=== PATIENT | male | born 1970 | race Caucasian/White ===

== ENCOUNTER 2017-11-04 13:47 | Emergency (ER) | payer OTHER, SELFPAY ==
[2017-11-04 14:07] VITALS: BP 131/104; PULSE 124; RESP 16; TEMP 37.1; O2SAT 94
--- NOTE | 2017-11-04 15:14 | DI.COMBO_ITS ---
SYMPTOM/DIAGNOSIS: SWELLING, REDNESS RT OLECRANON, GAS ON XRAY RIGHT ELBOW: Three views. No priors. There is significant soft tissue swelling in the region of the olecranon. There is soft tissue stranding also noted. There is a well corticated, 3 mm. density proximal to the olecranon in the posterior soft tissues. This is indeterminate. There is an ovoid, well circumscribed area of decreased attenuation anterior and lateral to the elbow. It measures approximately 5 cm. in maximum length. No associated calcifications are seen. There is a moderate sized spur arising from the olecranon. No acute fracture or dislocation is seen. No significant joint effusion is present. IMPRESSION: 1. Significant soft tissue swelling along the region of the olecranon bursa. This may represent a bursitis. CT or MRI should be considered for further evaluation. 2. Well circumscribed, low attenuation lesion in the lateral soft tissues. CT or MRI is suggested for further evaluation. 3. No acute fracture or dislocation. 4. Tiny soft tissue calcification proximal to the olecranon on the dorsum of the distal humerus. RIGHT ELBOW CT: Post contrast exam. Routine examination was performed. There is a 5 cm. intramuscular fat density lesion lateral to the elbow most suggestive of a lipoma. There is a thin septation in the lesion distally. The mass itself is of homogeneously fat attenuation. No abnormal enhancement is seen. There is significant soft tissue swelling and edema in the soft tissues adjacent to the olecranon. There also appears to be a 3.8 cm, rim enhancing fluid collection adjacent to the olecranon. The finding is suspicious for a bursitis. There does appear to be some cortical irregularity of the adjacent osteophyte on the olecranon. There also appears to be some loss of the fat plane between the adjacent musculature. An adjacent myositis or osteomyelitis cannot be excluded. No acute fracture or dislocation is identified. IMPRESSION: 1. Soft tissue stranding and a fluid collection adjacent to the olecranon suspicious for a bursitis. This may represent an infectious, traumatic or inflammatory bursitis. Question of involvement of the adjacent bone and muscle and a myositis osteomyelitis cannot be excluded. MRI may be considered for further evaluation. 2. 5 cm. fat density lesion in the soft tissues lateral to the elbow most suggestive of a lipoma. This may be further evaluated with an MRI.
--- NOTE | 2017-11-04 15:31 | W.ED.GENAD ---
Discharge Plan Disposition Patient Disposition: HOME Condition: Good Discharge Details Chief Complaint: Cellulitis Clinical Impression: Bursitis, olecranon Primary Care Provider: Christofer Abernathy ED Provider: Pawel Ibrahim Home Meds and New Rx's Prescriptions: New cephalexin [Keflex] 500 mg capsule 500 mg PO QID Qty: 30 RF: 0 Discharge Instructions Instructions: Elbow Bursitis (ED) Additional Instructions: Please take the antibiotic as directed. Please take 800 mg of your home ibuprofen 3 times per day. Please follow-up with the orthopedic surgeon Dr. Romero Saturday. Please call their office tomorrow morning at [phone] Romero wanted you to be seen on Saturday promptly. If you notice any worsening of your symptoms, or any new symptoms such as vomiting, diarrhea, fever, chills, shortness of breath, chest pain, numbness, weakness, or fainting , please return immediately to the emergency department for reevaluation. Please follow up with your primary care provider as soon as possible for reassessment and reevaluation. As always, it was a pleasure participating in your medical care today. Referrals: Herman Romero MD [ [facility] STAFF PHYSICIAN] - Discharge Data Discharge Date/Time-TO BE ENTERED AT DEPARTURE: 11/04/17 18:20 Medical Decision Making This is a pleasant 47-year-old male who presents with swelling over his right elbow for the last 3-1/2 days. Pain only began 24-48 hours ago. Minimal redness, no spreading erythema, no significant warmth over the elbow. He does have history of gout, which is certainly on the differential. There is pain with extension, minimal pain with flexion. He does the patient has been working on placing siding on his house. Main differential would normally include bursitis, however with his pain that is now worsening, and elevated heart rate differential is broadened to include infected bursitis, gout, mild cellulitis. Patient assures me that his heart rate is always high whenever he comes in to see the doctor, however I feel that it certainly does warrant caution and concern with his current elevated heart rate. We will evaluate for infectious etiology. Perform an x-ray to evaluate for any subcu gas, control his pain. X-ray results per virtual radiology have returned and demonstrate there is a significant soft tissue swelling in the region of the BURSA. THIS CAN BE SEEN WITH INFECTION, TRAUMA, OR BURSITIS. MORE ANTERIORLY A ROUNDED COLLECTION OF GAS IS IDENTIFIED IN THE SOFT TISSUE ADJACENT TO THE DISTAL HUMERUS AND PROXIMAL RADIUS. THIS IS WORRISOME FOR SOFT TISSUE INFECTION/ABSCESS. JOINT INFECTION IS ALSO POSSIBLE. CT SCAN SUGGESTED FOR FURTHER EVALUATION. CT SCAN WAS SUBSEQUENTLY ORDERED, FINDINGS WERE FOLLOWS THERE IS A STRANDING OF THE SOFT TISSUES SUPERFICIAL TO THE OLECRANON WITH A FLUID COLLECTION IDENTIFIED. THIS DEMONSTRATES SOME RIM ENHANCEMENT AND PUNCTATE RADIODENSITIES WHICH COULD REPRESENT COMPLEXITY. THE FINDINGS CAN BE SEEN WITH INFECTIOUS/SEPTIC BURSITIS, WITH ABSCESS FORMATION, TRAUMATIC BURSITIS, OR INFLAMMATORY BURSITIS. THERE IS LOSS OF FLAP PLANES BETWEEN THIS PROCESS IS ASSOCIATED FLUID STRANDING AND THE ADJACENT MUSCULATURE AND BONE. MYOSITIS AND OSTEOMYELITIS IS THEREFORE NOT EXCLUDED. MRI WITH CONTRAST WOULD BE BENEFICIAL FOR FURTHER EVALUATION. #2 NO SOFT TISSUE GAS IS IDENTIFIED. THIS 5 CM ROUNDED LUCENCY IN THE SOFT TISSUE ADJACENT TO THE DISTAL HUMERUS AND PROXIMAL RADIUS CORRESPOND TO AN INTRAMUSCULAR FATTY LESION. THIS MAY REPRESENT A LIPOMA IT DEMONSTRATES A SEPTATION. OTHER TYPES OF LESIONS ARE THEREFORE NOT EXCLUDED. THIS CAN ALSO BE FURTHER EVALUATED WITH MRI. Patient's laboratory workup has returned, he demonstrates no significant white count, his heart rate is improving with fluid resuscitation's. Out of concern for infectious etiology did start vancomycin and ceftriaxone. Patient's ESR is normal, however CRP is mildly elevated. Out of concern for potential infectious etiology, we did contact the orthopedic surgeon Dr. Romero. Discussed the case with him, and he came in for personal evaluation. Here in the emergency department Dr. Romero did take a fluid sample of the elbow. Dr. Romero specifically recommended discharge home, with Keflex for antibiotics for potential albeit unlikely infectious etiology. He feels that the patient's symptoms are secondary to inflammatory bursitis of the elbow. He does not think that the patient's current clinical picture reflects septic arthritis. He recommends close follow-up on Saturday morning. He states that he will send off cultures and and evaluate the fluid results on the patient's visit to the office. Patient's heart rate is improved. I have reviewed the plan with Dr. Romero and the patient together. Patient will be discharged. I have extensively reviewed the treatment plan and discharge instructions with the patient. I have addressed all patient concerns at this time. The patient was made aware of what symptoms to monitor for that would warrant a return to the emergency department. Discussed the plan with the patient, they demonstrate verbal understanding and agreement with our assessment and plan at this time. HPI General Date/Time Provider Initiated Documentation: 11/04/17 14:18. HPI Narrative: This is a 47-year-old male who presents today for right elbow pain. The patient states that for the last week he has been doing siding on his house, and on Saturday which was 4 days prior to arrival he noticed some swelling at his right elbow. No pain or tenderness at that time. Starting last night and today he has had notable increase in pain which extends slightly distally by about 2-3 inches. No other significant redness or spreading of the redness. The swelling has remained consistent. The pain is worse with movement, particularly extension of the elbow. As well as palpation. He has had some ice and Tylenol applied to the area and this is not significantly improved his symptoms. He has had no systemic symptoms of fever, chills, shortness of breath. Patient does admit to a history of gout in the distant past, he does admit to eating a diet heavy in meat recently, but denies any changes compared to normal. He denies any trauma to the area, or any other exacerbating components. Patient denies any other relieving components either. The patient denies any other modifying factors at this time. He denies any pertinent family history, any recent surgical history, or any IV or illicit drug use. Related Data Home Medications Medication Instructions Recorded Confirmed cephalexin [Keflex] 500 mg PO QID #30 cap 11/04/17 Previous Rx's Medication Instructions Recorded cephalexin [Keflex] 500 mg PO QID #30 cap 11/04/17 Allergies Allergy/AdvReac Type Severity Reaction Status Date / Time pollen extracts Allergy Unverified 11/04/17 14:13 General Stated Complaint: Cellulitis FERNADNO: 3 Review of Systems Review of Systems 10 point review of systems was performed, pertinent positives and negatives are noted in the history of present illness. PFSH Medical History Diverticulitis large intestine w/o perforation or abscess w/o bleeding Essential hypertension Non morbid obesity due to excess calories Social History Smoking/Tobacco Use Status: Former Tobacco Use Surgical History Appendectomy [place] [facility] [place] Hernia repair Exam Narrative Exam Narrative: 1.Const: Well-nourished, Well-developed, appearing stated age 2.Eyes: PERRL, no conjunctival injection, and symmetrical lids. 3.ENT: Atraumatic external nose and ears. Moist MM. Neck: Symmetric, trachea midline, No thyromegaly. 4.CVS: +S1/S2, No murmurs or gallops. Peripheral pulses 2+ and equal in all extremities. Brisk capillary refill in all extremities. 5.RESP: Unlabored respiratory effort. Clear to auscultation bilaterally. No wheezes rales or rhonchi 6.GI: Soft, Nontender/Nondistended, No hepatosplenomegaly. No guarding or rebound. 7.MSK: Normocephalic/Atraumatic, Extremities w/o deformity No cyanosis or clubbing, Patient's extremities are all normal except for the right upper extremity. The right upper extremity demonstrates notable swelling at the olecranon itself. Minimal erythema. No significant warmth. Pain with active and passive movement, specifically extension at the elbow. No crepitus is noted. All compartments are soft. No spreading erythema. No tenderness on the distal forearm, absolute minimal tenderness roughly 1-2 inches distal on the forearm from the olecranon process. Sensation is intact including soft, pinprick, and 2 point discrimination distal to the swelling. No significant axillary lymphadenopathy. Capillary refill is brisk, no IV drug luz, radial pulses +2 bilaterally. 8.Skin: Warm, Dry. .Please see musculoskeletal 9.Neuro: talent coordinator II-XII grossly intact. Sensation grossly intact, no focal neurologic deficits. 10.Psych: (AAO) x3. Appropriate mood and affect Course Vital Signs Temperature 37.1 C 11/04/17 14:07 Pulse 124 H 11/04/17 14:07 Respiratory Rate 16 11/04/17 14:07 Blood Pressure 131/104 H 11/04/17 14:07 Pulse Oximetry 94 L 11/04/17 14:07 Temperature 37.1 C 11/04/17 14:07 Temperature Source Skin 11/04/17 14:07 Pulse 124 H 11/04/17 14:07 Respiratory Rate 16 11/04/17 14:07 Respiratory Effort 11/04/17 14:11 Blood Pressure 131/104 H 11/04/17 14:07 Blood Pressure Position Sitting 11/04/17 14:07 Pulse Oximetry 94 L 11/04/17 14:07 Oxygen Delivery Method Room Air 11/04/17 14:07 Oxygen Flow Rate 0 11/04/17 14:07 Pain Level 5 11/04/17 14:07 Lab/Test Results Lab/Test Results: 11/04/17 15:15 Blood Blood Culture - Pending 11/04/17 15:15 Blood Blood Culture - Pending
--- NOTE | 2017-11-04 15:36 | ED.GENADUL_ITS ---
Discharge Plan Disposition Patient Disposition: HOME Condition: Good Discharge Details Chief Complaint: Cellulitis Clinical Impression: Bursitis, olecranon Primary Care Provider: Christofer Abernathy ED Provider: Pawel Ibrahim Home Meds and New Rx's Prescriptions: New cephalexin [Keflex] 500 mg capsule 500 mg PO QID Qty: 30 RF: 0 Discharge Instructions Instructions: Elbow Bursitis (ED) Additional Instructions: Please take the antibiotic as directed. Please take 800 mg of your home ibuprofen 3 times per day. Please follow-up with the orthopedic surgeon Dr. Romero Saturday. Please call their office tomorrow morning at and tell them that Dr. Romero wanted you to be seen on Saturday promptly. If you notice any worsening of your symptoms, or any new symptoms such as vomiting, diarrhea, fever, chills, shortness of breath, chest pain, numbness, weakness, or fainting , please return immediately to the emergency department for reevaluation. Please follow up with your primary care provider as soon as possible for reassessment and reevaluation. As always, it was a pleasure participating in your medical care today. Referrals: Herman Romero MD [ [facility] STAFF PHYSICIAN] - Discharge Data Discharge Date/Time-TO BE ENTERED AT DEPARTURE: 11/04/17 18:20 Medical Decision Making This is a pleasant 47-year-old male who presents with swelling over his right elbow for the last 3-1/2 days. Pain only began 24-48 hours ago. Minimal redness, no spreading erythema, no significant warmth over the elbow. He does have history of gout, which is certainly on the differential. There is pain with extension, minimal pain with flexion. He does the patient has been working on placing siding on his house. Main differential would normally include bursitis, however with his pain that is now worsening, and elevated heart rate differential is broadened to include infected bursitis, gout, mild cellulitis. Patient assures me that his heart rate is always high whenever he comes in to see the doctor, however I feel that it certainly does warrant caution and concern with his current elevated heart rate. We will evaluate for infectious etiology. Perform an x-ray to evaluate for any subcu gas, control his pain. X-ray results per virtual radiology have returned and demonstrate there is a significant soft tissue swelling in the region of the BURSA. THIS CAN BE SEEN WITH INFECTION, TRAUMA, OR BURSITIS. MORE ANTERIORLY A ROUNDED COLLECTION OF GAS IS IDENTIFIED IN THE SOFT TISSUE ADJACENT TO THE DISTAL HUMERUS AND PROXIMAL RADIUS. THIS IS WORRISOME FOR SOFT TISSUE INFECTION/ABSCESS. JOINT INFECTION IS ALSO POSSIBLE. CT SCAN SUGGESTED FOR FURTHER EVALUATION. CT SCAN WAS SUBSEQUENTLY ORDERED, FINDINGS WERE FOLLOWS THERE IS A STRANDING OF THE SOFT TISSUES SUPERFICIAL TO THE OLECRANON WITH A FLUID COLLECTION IDENTIFIED. THIS DEMONSTRATES SOME RIM ENHANCEMENT AND PUNCTATE RADIODENSITIES WHICH COULD REPRESENT COMPLEXITY. THE FINDINGS CAN BE SEEN WITH INFECTIOUS/ SEPTIC BURSITIS, WITH ABSCESS FORMATION, TRAUMATIC BURSITIS, OR INFLAMMATORY BURSITIS. THERE IS LOSS OF FLAP PLANES BETWEEN THIS PROCESS IS ASSOCIATED FLUID STRANDING AND THE ADJACENT MUSCULATURE AND BONE. MYOSITIS AND OSTEOMYELITIS IS THEREFORE NOT EXCLUDED. MRI WITH CONTRAST WOULD BE BENEFICIAL FOR FURTHER EVALUATION. #2 NO SOFT TISSUE GAS IS IDENTIFIED. THIS 5 CM ROUNDED LUCENCY IN THE SOFT TISSUE ADJACENT TO THE DISTAL HUMERUS AND PROXIMAL RADIUS CORRESPOND TO AN INTRAMUSCULAR FATTY LESION. THIS MAY REPRESENT A LIPOMA IT DEMONSTRATES A SEPTATION. OTHER TYPES OF LESIONS ARE THEREFORE NOT EXCLUDED. THIS CAN ALSO BE FURTHER EVALUATED WITH MRI. Patient's laboratory workup has returned, he demonstrates no significant white count, his heart rate is improving with fluid resuscitation's. Out of concern for infectious etiology did start vancomycin and ceftriaxone. Patient's ESR is normal, however CRP is mildly elevated. Out of concern for potential infectious etiology, we did contact the orthopedic surgeon Dr. Romero. Discussed the case with him, and he came in for personal evaluation. Here in the emergency department Dr. Romero did take a fluid sample of the elbow. Dr. Romero specifically recommended discharge home, with Keflex for antibiotics for potential albeit unlikely infectious etiology. He feels that the patient's symptoms are secondary to inflammatory bursitis of the elbow. He does not think that the patient's current clinical picture reflects septic arthritis. He recommends close follow-up on Saturday morning. He states that he will send off cultures and and evaluate the fluid results on the patient's visit to the office. Patient's heart rate is improved. I have reviewed the plan with Dr. Romero and the patient together. Patient will be discharged. I have extensively reviewed the treatment plan and discharge instructions with the patient. I have addressed all patient concerns at this time. The patient was made aware of what symptoms to monitor for that would warrant a return to the emergency department. Discussed the plan with the patient, they demonstrate verbal understanding and agreement with our assessment and plan at this time. HPI General Date/Time Provider Initiated Documentation: 11/04/17 14:18 . HPI Narrative: This is a 47-year-old male who presents today for right elbow pain. The patient states that for the last week he has been doing siding on his house, and on Saturday which was 4 days prior to arrival he noticed some swelling at his right elbow. No pain or tenderness at that time. Starting last night and today he has had notable increase in pain which extends slightly distally by about 2-3 inches. No other significant redness or spreading of the redness. The swelling has remained consistent. The pain is worse with movement, particularly extension of the elbow. As well as palpation. He has had some ice and Tylenol applied to the area and this is not significantly improved his symptoms. He has had no systemic symptoms of fever, chills, shortness of breath. Patient does admit to a history of gout in the distant past, he does admit to eating a diet heavy in meat recently, but denies any changes compared to normal. He denies any trauma to the area, or any other exacerbating components. Patient denies any other relieving components either. The patient denies any other modifying factors at this time. He denies any pertinent family history, any recent surgical history, or any IV or illicit drug use. Related Data Home Medications Medication Instructions Recorded Confirmed cephalexin [Keflex] 500 mg PO QID #30 cap 11/04/17 Previous Rx's Medication Instructions Recorded cephalexin [Keflex] 500 mg PO QID #30 cap 11/04/17 Allergies Allergy/AdvReac Type Severity Reaction Status Date / Time pollen extracts Allergy Unverified 11/04/17 14:13 General Stated Complaint: Cellulitis FERNANDO: 3 Review of Systems Review of Systems 10 point review of systems was performed, pertinent positives and negatives are noted in the history of present illness. PFSH Medical History Diverticulitis large intestine w/o perforation or abscess w/o bleeding Essential hypertension Non morbid obesity due to excess calories Social History Smoking/Tobacco Use Status: Former Tobacco Use Surgical History App[place] [facility] [place] Hernia repair Exam Narrative Exam Narrative: 1.Const: Well-nourished, Well-developed, appearing stated age 2.Eyes: PERRL, no conjunctival injection, and symmetrical lids. 3.ENT: Atraumatic external nose and ears. Moist MM. Neck: Symmetric, trachea midline, No thyromegaly. 4.CVS: +S1/S2, No murmurs or gallops. Peripheral pulses 2+ and equal in all extremities. Brisk capillary refill in all extremities. 5.RESP: Unlabored respiratory effort. Clear to auscultation bilaterally. No wheezes rales or rhonchi 6.GI: Soft, Nontender/Nondistended, No hepatosplenomegaly. No guarding or rebound. 7.MSK: Normocephalic/Atraumatic, Extremities w/o deformity No cyanosis or clubbing, Patient's extremities are all normal except for the right upper extremity. The right upper extremity demonstrates notable swelling at the olecranon itself. Minimal erythema. No significant warmth. Pain with active and passive movement, specifically extension at the elbow. No crepitus is noted. All compartments are soft. No spreading erythema. No tenderness on the distal forearm, absolute minimal tenderness roughly 1-2 inches distal on the forearm from the olecranon process. Sensation is intact including soft, pinprick, and 2 point discrimination distal to the swelling. No significant axillary lymphadenopathy. Capillary refill is brisk, no IV drug luz, radial pulses +2 bilaterally. 8.Skin: Warm, Dry. 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 Sensation grossly intact, no focal neurologic deficits. 10.Psych: (AAO) x3. Appropriate mood and affect Course Vital Signs Temperature 37.1 C 11/04/17 14:07 Pulse 124 H 11/04/17 14:07 Respiratory Rate 16 11/04/17 14:07 Blood Pressure 131/104 H 11/04/17 14:07 Pulse Oximetry 94 L 11/04/17 14:07 Temperature 37.1 C 11/04/17 14:07 Temperature Source Skin 11/04/17 14:07 Pulse 124 H 11/04/17 14:07 Respiratory Rate 16 11/04/17 14:07 Respiratory Effort 11/04/17 14:11 Blood Pressure 131/104 H 11/04/17 14:07 Blood Pressure Position Sitting 11/04/17 14:07 Pulse Oximetry 94 L 11/04/17 14:07 Oxygen Delivery Method Room Air 11/04/17 14:07 Oxygen Flow Rate 0 11/04/17 14:07 Pain Level 5 11/04/17 14:07 Lab/Test Results Lab/Test Results: 11/04/17 15:15 Blood Blood Culture - Pending 11/04/17 15:15 Blood Blood Culture - Pending
[2017-11-04 15:41] LABS: Lactate-non-spesis 1.6 mmol/L (0.6-1.4)
[2017-11-04 15:42] LABS: Abs Immature Grans 0.02 k/cumm (0.0-0.09); Absolute Eosinophil Count 0.31 k/cumm (0.0-0.7); Absolute Monocyte Count 0.63 k/cumm (0.11-0.7); Basophils % 0.3; Eosinophils % 2.6; HCT 51.2 % (40.0-50.0); Immature Grans % 0.2; Lymphocytes % 25.1; Mean Corp. HGB Concentration 35.2 g/dL (32.0-36.0); Mean Corpuscular Hemoglobin 31.1 pg (27.0-33.0); Mean Corpuscular Volume 88.4 fL (80-95); Mean Platelet Volume 9.4 fL (8.0-11.0); Monocytes % 5.3; Neutrophils % 66.5; Platelet Count 249 x1000/uL (130-400); RBC 5.79 m/cumm (4.50-6.00); RBC Distribution Width 13.1 % (11.8-14.1); White Blood Cell Count 11.95 k/cumm (4.4-10.8)
[2017-11-04 15:44] LABS: Absolute Basophil Count 0.04 k/cumm (0.0-0.2); Absolute Neutrophil Count 7.95 k/cumm (1.2-6.7)
[2017-11-04] MEDS: Normal Saline 1,000 ML 1000 ML IV (16:10)
[2017-11-04] MEDS: Ketorolac 30 MG/ML VIAL IM (16:10)
[2017-11-04 16:13] LABS: ALT 73 U/L (12-78); AST 24 U/L (15-37); Albumin 3.4 g/dL (3.4-5.0); Alkaline Phosphatase 82 U/L (46-116); Anion Gap 8.9 mmol/L (3-11); BUN 19 mg/dL (7-18); Bilirubin, Total 0.2 mg/dL (0.2-1.0); C-Reactive Protein 0.94 mg/dL (0.0-0.3); CO2 28.1 mmol/L (21.0-32.0); CREATININE 1.04 mg/dL (0.70-1.30); Calcium 8.8 mg/dL (8.5-10.1); Chloride 104 mmol/L (98-107); Glucose 168 mg/dL (70-100); Potassium 3.9 mmol/L (3.5-5.1); Sodium 141 mmol/L (136-145); Total Protein 7.2 g/dL (6.4-8.2)
[2017-11-04 16:14] LABS: ESR 8 MM/HR (0-15)
[2017-11-04 16:16] LABS: Uric Acid 6.8 mg/dL (3.5-7.2)
--- NOTE | 2017-11-04 17:04 | DI.VRAD_ITS ---
EXAM: XR Right Elbow Complete, 3 or More Views CLINICAL HISTORY: 47 years old, male; Pain; Elbow; Right; Patient HX: Swelling/redness at right olecrenon TECHNIQUE: Frontal, lateral and oblique views of the right elbow. COMPARISON: No relevant prior studies available. FINDINGS: Bones/joints: Spurlike protrusions are seen arising from the radial aspect of the distal humerus (image 1001) and from the olecranon posteriorly. No dislocation. Soft tissues: There is significant soft tissue swelling in the region of the olecranon bursa. More anteriorly, a 5 cm rounded collection of gas is identified in the soft tissues adjacent to the distal humerus and proximal radius. There is a rounded density in the posterior soft tissues, image 1003, 3 mm. This could represent a soft tissue calcification but should be correlated with any concern for foreign body. IMPRESSION: 1. There is significant soft tissue swelling in the region of the olecranon bursa. This can be seen with infection, trauma, or bursitis. More anteriorly, a rounded collection of gas is identified in the soft tissues adjacent to the distal humerus and proximal radius. This is worrisome for a soft tissue infection/abscess. Joint infection is also possible. CT scan suggested for further evaluation. 2. There is significant soft tissue swelling in the region of the olecranon bursa. This can be seen with infection, trauma, or bursitis. 3. Spurlike protrusions are seen arising from the radial aspect of the distal humerus and from the olecranon posteriorly. These could represent the sequela of older trauma or degenerative change but should be correlated with any concern for avulsion injuries/fractures. 4. Possible soft tissue calcification. Finding should be correlated with any concern for foreign body. Other findings as above. THIS REPORT CONTAINS FINDINGS THAT MAY BE CRITICAL TO PATIENT CARE. The findings were verbally communicated via telephone conference with JOAN VASQUEZ at 5:02 PM EDT on 11/04/2017. The findings were acknowledged and understood. Dictated and Authenticated by: Christy Figueroa MD. Ordering:SEBASTIEN FRANCO MD
--- NOTE | 2017-11-04 18:36 | DI.VRAD_ITS ---
EXAM: CT Right Upper Extremity With Intravenous Contrast, Elbow CLINICAL HISTORY: 47 years old, male; Signs and symptoms; Swelling; Elbow; Right; Patient HX: Right elbow swelling, presence of gas on xray TECHNIQUE: Axial computed tomography images of the right elbow with intravenous contrast. Coronal and sagittal reformatted images were created and reviewed. COMPARISON: CR XR elbow RT complete 11/04/2017 3:41 PM FINDINGS: Bones/joints: There are skeletal degenerative changes with bony spurs noted. No acute fracture. No dislocation. Soft tissues: There is stranding of the soft tissues superficial to the olecranon with a fluid collection identified measuring approximately 3.8 cm in maximum dimensions. This demonstrates some rim enhancement and punctate radiodensities which could represent complexity (foreign bodies not excluded).. The findings can be seen with infectious/septic bursitis (with abscess formation), traumatic bursitis, or inflammatory bursitis. There is a loss of fat planes between this process's associated fluid/stranding and the adjacent musculature and bone. Myositis/osteomyelitis is therefore not excluded. MRI with contrast would be beneficial for further evaluation. No soft tissue gas is identified. The 5 cm rounded lucency in the soft tissues adjacent to the distal humerus/proximal radius corresponds to an intramuscular fatty lesion. While this may represent a lipoma, it demonstrates a septation. Other types of lesions are therefore not excluded. This can also be further evaluated with MRI. IMPRESSION: 1. There is stranding of the soft tissues superficial to the olecranon with a fluid collection identified. This demonstrates some rim enhancement and punctate radiodensities which could represent complexity (foreign bodies not excluded). The findings can be seen with infectious/septic bursitis (with abscess formation), traumatic bursitis, or inflammatory bursitis. There is a loss of fat planes between this process's associated fluid/stranding and the adjacent musculature and bone. Myositis/osteomyelitis is therefore not excluded. MRI with contrast would be beneficial for further evaluation. 2. No soft tissue gas is identified. The 5 cm rounded lucency in the soft tissues adjacent to the distal humerus/proximal radius corresponds to an intramuscular fatty lesion. While this may represent a lipoma, it demonstrates a septation. Other types of lesions are therefore not excluded. This can also be further evaluated with MRI. 3. Other findings as above. Dictated and Authenticated by: Christy Figueroa MD. Ordering:SEBASTIEN FRANCO MD
[2017-11-04] MEDS: VANCOMYCIN 1,500 MG in Normal Saline 500 ML 333.3333 MG IVPB (18:47)
[2017-11-04 20:12] VITALS: BP 130/98; PULSE 102; RESP 18; TEMP 36.9; O2SAT 97
[2017-11-04 20:16] LABS: Clarity CLOUDY; Source R ELBOW
[2017-11-04 20:17] LABS: Nucleated Cells 609 /MM3 (0-0)
[2017-11-04 20:39] LABS: Mononuclear Cells 47 % (0-0); Polynuclear Cells 53 % (0-0)
--- NOTE | 2017-11-05 09:01 | OCONE_ITS ---
ER ORTHOPEDIC CONSULT DATE OF CONSULTATION November 04, 2017 REASON FOR CONSULT Painful swelling right elbow. ASSESSMENT Right olecranon bursitis. Whether this is being caused by infection or whether this is due to gout, I cannot tell right now. PLAN We will place him on Keflex 500 mg p.o. q. 6 hours. I instructed him to take ibuprofen 800 mg p.o. q. 8 hours. I want him to ice his elbow every 4 hours for an hour at a time to help with swelling and pain. He sh ould call my office tomorrow to make an appointment for followup on Saturday. We will be abl e to review his cultures and his labs at that time, and assess on whether he has improved or not. HISTORY OF PRESENT ILLNESS This is a 47-year-old white male who has developed swelling and pain over the olecranon on the right. He does not recall any particular trauma. He said it started getting sore around Saturday night, and o rosalina the last two days, it has gotten a much more sore. He is now feeling discomfort not only with mo ving his elbow, but with gripping hard with his right hand. He says he has had a problem in the past with bursitis in various areas. He said he has had a history of gout in the past, but he did not requ nilsa any particular treatment. He has been taking ibuprofen 800 mg for the discomfort, but he has not been taking it regularly. OBJECTIVE Examining his right elbow, he has a mild amount of swelling within the olecranon bursa on the right. There is only some mild erythema right over the point of the elbow. It is tender to the touch over th e area. When he shakes my hand, it is a little tender for him to do this. He lacks about 10 degrees o r so of extension, but he still flexes pretty well to 120 degrees. He has normal sensation and circul ation in the fingers of his right hand. RADIOLOGY/LABORATORY Plain x-ray films of the elbow were obtained, other than some soft tissue swelling, they show no bony changes. No fractures. No bony lesions. His white count is not elevated. C- reactive protein is minimally elevated at 0.9 and his sed rate is normal. Today, I perform an aspiration of his olecranon bursa. I remove about 5 cc of fairly clear fluid. I s ent a sample for cell count and differential, and crystal analysis. I then sent another sample for ro utine culture and sensitivity. The patient has received a dose of IV Zosyn.
== END 2017-11-04 18:20 | disposition home or self-care (01) ==
PROVIDERS: Emergency Provider Student in an Organized Health Care Education/Training Program; PCP Family Medicine
DX: M70.21 Olecranon bursitis, right elbow (principal); I10 Essential (primary) hypertension
CPT/HCPCS: 20605; 36415; 80053; 85652; 87040; 96361; 96365; 96366; 96367; 96372; 99285; 73080; 73201; 83605; 84550; 85025; 86140; 87070; 87205; 89051; 89060; J0696; J1885

== ENCOUNTER 2017-11-08 06:57 | Day surgery (SDC) | payer OTHER, SELFPAY ==
[2017-11-08 07:23] VITALS: BP 110/81; PULSE 94; RESP 16; TEMP 36.7; O2SAT 92
[2017-11-08] MEDS: Lactated Ringers 1,000 ML 80 ML IV (08:57)
--- NOTE | 2017-11-08 09:00 | BONE_PTH ---
PATIENT: Justin Tsang LOC: [facility] U#:[id number] AGE/SX: 47/M ROOM: RE11/08/[address]: Herman Romero MD : [id number] BED: DIS: 11/08/2017 SPEC #: [id number] RECD: 11/08/17 12:49 STATUS: NELLI RE #: [id number] AMBERLY: 11/08/17 09:[address]: Herman Romero DEPT: Surgical Specimen RECD BY: Misty Conley ENTERED: 11/08/17 12:51 SP TYPE: Bone OTHR DR: Christofer Abernathy Tissues: 1 - BONE BX/CURRETTE NOT PATH FRACTURE Procedures: GROSS AND MICRO LEVEL 3 SPECIAL STAIN 1 Comments: [id number] (SUBMITTED IN 100% ETHANOL)
[2017-11-08 09:52] VITALS: BP 151/100; PULSE 97; RESP 20; TEMP 36.5; O2SAT 95
[2017-11-08 09:57] VITALS: BP 134/95; PULSE 90; RESP 20; TEMP 36.5; O2SAT 95
[2017-11-08 10:02] VITALS: BP 132/96; PULSE 91; RESP 14; TEMP 36.5; O2SAT 96
[2017-11-08 10:07] VITALS: BP 135/99; PULSE 87; RESP 16; TEMP 36.5; O2SAT 95
--- NOTE | 2017-11-08 10:26 | W.PM.DSUDISC ---
Discharge Plan Disposition Patient Disposition: HOME Condition: Good Discharge Details Reason For Visit: (R) OLECRANON BURSITITIS Attending Provider: Herman Romero Primary Care Provider: Christofer Abernathy Home Meds and New Rx's Prescriptions: New ibuprofen 800 mg tablet 800 mg PO TID MDD 2400 mg Qty: 60 RF: 3 oxycodone-acetaminophen 5-325 mg tablet 1 tab PO Q6H Qty: 20 RF: 0 Discharge Instructions Additional Instructions: May take R arm out of sling and move elbow as much as your discomfort allows. Discontinue sling when you can move R elbow with minimal pain. May remove dressings, shower, and get incision wet after 72 hours. After showering, pat incision dry and cover with light gauze dressing held in place with the Santos bandage. Loosen Santos bandage if R hand swells. Take the ibuprofen 3 times/day to treat your gout. Take Percocet (oxycodone) for breakthru pain, every 6 hours, if needed. Follow up in 's office in 10-14 days. Equipment/Supplies: Sling Activity:: Activity as Tolerated Remove Dressings/Wound Care:: 72 hours Shower/Bathe:: 72 hours Diet:: Normal Diet Discharge Orders Discharge Orders: Discharge Order (Routine); Ordered 11/08/17 Ordered By: Herman Romero
[2017-11-08] MEDS: Ketorolac 30 MG/ML VIAL IVP (10:32)
--- NOTE | 2017-11-08 11:31 | ROE_ITS ---
REPORT OF OPERATIVE PROCEDURE DATE OF SURGERY November 08, 2017 PREOPERATIVE DIAGNOSES Right olecranon bursitis with associated olecranon spur. POSTOPERATIVE DIAGNOSES Right olecranon bursitis with associated olecranon spur, plus the bursitis was due to gout (uric acid crystals). PROCEDURES 1. Right olecranon bursectomy. 2. Excision of olecranon spur. 3. Excision of uric acid deposits from the soft tissues around the right olecranon bursa. ANESTHESIA General, via Jamarcus Oconnor C.R.N.A. SURGEON Herman Romero M.D. INDICATIONS This is a 47-year-old white male who began experiencing some discomfort in his right olecranon bursa on 11/01/17. His discomfort progressed, causing him to go to the Emergency Room on 11/04/17. I was cons ulted at that time and aspirated the olecranon bursa. The fluid was clear. The cell count was 500. Cu ltures showed no growth at 72 hours. Crystal analysis of the fluid was reported as showing no crystal s. The patient was treated with ibuprofen and Keflex pending culture results. I saw him in my office on 11/06/17. He was feeling better at that time and I discontinued the antibiotics. I saw him again t he following day on 11/07/17, because of increasing discomfort. The appearance of the elbow however wa s not much different. He did not appear to have an infectious process. The patient wished to have the problem resolved as quickly as possible since he is leaving the [facility] [employer] at the end of November. I therefore, recommended excision of the olecranon spur, because I thought this might be the cause of the olecranon bursitis. I also recommended olecranon bursectomy as part of the procedure. The risks and complications of the procedures were explained to the patient i n detail preoperatively. He wished to have the procedure as soon as possible. PROCEDURE DESCRIPTION The patient was taken to the Operating Room on 11/08/2017. He was placed supine on the operating tab le and a general anesthetic was administered. A proximal tourniquet was applied to the right upper a rm, and the right elbow was prepped and draped free in the usual sterile fashion. I flexed his elbow over his chest on bumps. Under proximal tourniquet control, I made an incision over the olecranon. It began over the ulnar crest distally, curved laterally around the tip of the olecranon and then it wa s brought back to the midline over the triceps tendon. The length of the incision was about 4 inches. The incision was carried down through the subcu to the bursa. Upon entering the bursa, there was melissa lky material deposit in the soft tissues and in the bursal tissue that looked like uric acid. Specime ns were sent for pathological analysis. There was some hypertrophic olecranon bursal tissue and this was excised, and also sent to pathology. I then, was able to expose the olecranon spur. The olecranon spur really did not involve the triceps tendon attachment. I removed the spur with a rongeur and the base of the spur was superficial to the insertion of the triceps. I only split a small area of the t riceps proximal to the spur maybe about 1 cm in length, and I placed two sutures of #1 Vicryl just as a precaution against tendon avulsion in the postop period. I removed all visible uric acid deposits from the wound. Bleeders were cauterized. The wound was irrigated with saline solution. I loosely approximated the subcu with interrupted #2-0 Vicryl sutures. I infiltrated the wound margin s with 0.5% Marcaine with epinephrine solution for postop analgesia. I approximated the skin with ten jerod relieving sutures near-far, far-near type of #3-0 Nylon interrupted. The wounds were dressed wit h Xeroform gauze, sterile gauze 4x4s, ABD pads, and wrapped with a Kerlix bandage and then wrapped wi th a 6-inch Santos bandage. The right arm was placed in a sling. The tourniquet was released prior to s kin closure. Pressure was applied to the wound for a couple of minutes after the tourniquet was relea sed. There was no significant bleeding from the incision. The patient's anesthesia was reversed witho ut complications. He was discharged to the Recovery Room in good condition. The patient was discharged home from the Day Surgery Unit when fully recovered from his general anest hesia. He was given instructions to use the sling for comfort. He may take his arm out of the sling and move his elbows as much as discomfort allows. He may discontinue the sling as soon as his discomf ort allows. He may remove his dressings, shower and get his incision wet after 72 hours. He should fo llowup in my office in 10 to 14 days. He is given a prescription for of anti-inflammatory medications to treat his gout, specifically 800 mg of ibuprofen t.i.d. and a prescription for pain of Percocet 5 /325 1 tablet every 6 hours as needed.
== END 2017-11-08 11:30 | disposition home or self-care (01) ==
PROVIDERS: PCP Family Medicine; Visit Provider Orthopaedic Surgery
PROC: (CPT 24105; principal; 2017-11-08 08:30)
DX: M71.521 Other bursitis, not elsewhere classified, right elbow (principal); M25.721 Osteophyte, right elbow; M10.021 Idiopathic gout, right elbow; I10 Essential (primary) hypertension
CPT/HCPCS: 24105; 24120; 88304; 88312; J0690; J1100; J1885; J2405; J3010; L3650

== ENCOUNTER 2017-11-20 09:37 | Outpatient (CLI) | payer OTHER, SELFPAY ==
--- NOTE | 2017-11-20 09:25 | DI.RAD_ITS ---
SYMPTOM/DIAGNOSIS: F/U SPUR RESECTION RIGHT ELBOW: Two views. Comparison is made with 11/04/17. Since the prior examination, there has been resection of the osteophyte arising from the olecranon. There is normal alignment of the elbow. No acute fracture, dislocation, lytic or sclerotic lesion is seen. There is mild soft tissue thickening at the elbow. IMPRESSION: Status post resection of an olecranon spur.
== END 2017-11-20 09:57 ==
PROVIDERS: PCP Family Medicine; Visit Provider Orthopaedic Surgery
DX: Z47.89 Encounter for other orthopedic aftercare (principal); M71.521 Other bursitis, not elsewhere classified, right elbow; M25.721 Osteophyte, right elbow
CPT/HCPCS: 73070

== ENCOUNTER 2019-09-15 18:57 | Emergency (ER) | payer OTHER, SELFPAY ==
--- NOTE | 2019-09-15 19:00 | DI.RAD_ITS ---
EXAM: XR CHEST 2V PA LATERAL CLINICAL HISTORY: right sided chest pain s/p fall TECHNIQUE: 2D digital imaging was performed. COMPARISON: No exams were available for comparison FINDINGS: The heart is not enlarged. The lungs are clear and well expanded. No pleural effusion seen. Mediastin al contours appear intact. IMPRESSION: Normal chest
[2019-09-15 19:01] VITALS: BP 144/102; PULSE 106; RESP 16; TEMP 36.8; O2SAT 96
--- NOTE | 2019-09-15 19:10 | ED.GENADUL_ITS ---
Discharge Plan Disposition Patient Disposition: HOME Condition: Stable Discharge Details Chief Complaint: Chest/Rib Clinical Impression: Contusion of rib on right side Primary Care Provider: Christofer Abernathy ED Provider: Rashad Patel Home Meds and New Rx's Prescriptions: No Action No Known Home Meds RF: 0 Discharge Instructions Instructions: Rib Contusion (ED) Additional Instructions: follow up with your primary care provider within a week for reassessment and recheck of your blood pressure take 1000mg tylenol and 600mg ibuprofen every 6 hours for pain as needed if you have severe worsening pain, difficulty breathing or fevers return to the emergency department Medical Decision Making 49 yo male with no chronic medical problems per pt comes in with right lateral mid/upper back pain. He states he tripped on a stair and landed on right lateral chest and back, no loc and no head trauma. Denies loc or presyncope symptoms. Has no headache, neck pain, chest pain, abdominal pain, no hematuria. Has pain over 5-6 ribs in posterior right lateral back in midscapula line without crepitus and clear lungs. Suspect rib contusion but will xray to eval for possible ptx and less likely rib fx. no acute findings on my read or vrad read, could have small nondisplaced fx. Will d/c home with small amount of oxycodone for pain relief to sleep and advised f/u with pcp and return precautions given Differential Diagnosis Differential Diagnosis: rib contusion, fracture, ptx Imaging Data Radiologic Study: Attestation: I personally reviewed and interpreted this imaging study as follows: Imaging: X-Ray My impression: no acute findings HPI General Mode of arrival: ambulatory . Date/Time Provider Initiated Documentation: 09/15/19 19:00 . Limitations to Documentation: no limitations . Information obtained by: patient . History of Present Illness 49 year old M presents to the emergency department with the chief complaint of right sided upper/mid back pain s/p fall, described as moderate, and it has been constant. No relieving factors improve symptom(s), No exacerbating factors reported . Patient did receive the following treatments prior to arrival, NSAID Related Data Home Medications Medication Instructions Recorded Confirmed Unknown [No Known Home Meds] 09/15/19 09/15/19 Allergies Allergy/AdvReac Type Severity Reaction Status Date / Time pollen extracts Allergy Verified 10/10/18 09:30 General Stated Complaint: Chest/Rib FERNANDO: 3 Review of Systems All systems reviewed & are unremarkable except as noted in HPI and below Constitutional Constitutional: Denies chills, Denies fever(s) and Denies weakness Cardiovascular Cardiovascular: Denies chest pain and Denies dyspnea Respiratory Respiratory: Denies cough and Denies dyspnea Gastrointestinal Gastrointestinal: Denies abdominal pain, Denies nausea and Denies vomiting Musculoskeletal Musculoskeletal: Denies joint swelling Neurologic Neurologic: Denies weakness Psychiatric Psychiatric: Denies depression [facility] Medical History (Updated 09/15/19 @ 19:34 by Rashad Patel MD) Diverticulitis large intestine w/o perforation or abscess w/o bleeding Essential hypertension Non morbid obesity due to excess calories Surgical History (Updated 11/27/17 @ 14:36 by [employer] [place]) Appendectomy Colonoscopy - MAC (09/24/16) Hernia repair Social History Smoking/Tobacco Use Status: Current every day Tobacco Type: cigarettes Alcohol Intake: current Alcohol Intake frequency: a few times a month Drug use: Never Substance use type: does not use Do you feel safe at home: Yes Do you feel safe in your relationship?: Yes Exam Const General: no acute distress Orientation: alert HENMT Head: normal to inspection Ears: external ears normal General nose exam: external nose normal Mouth: moist mucous membranes Eyes General: appearance normal, both eyes and all related structures Neck Neck: normal visual inspection Resp Effort & Inspection: normal respiratory effort and able to speak in complete sentences Cardio Rate: regular rate Back/Spine/Pelvis Back: no CVA tenderness Skin General skin exam: no rashes or lesions noted Neuro General: patient alert and patient oriented x3 Extrem General: normal to inspection Psych Mental Status: mental status grossly normal Course Vital Signs Vital signs: Vital Signs Temperature 36.8 C 09/15/19 19:01 Pulse 106 H 09/15/19 19:01 Respiratory Rate 16 09/15/19 19:01 Blood Pressure 144/102 H 09/15/19 19:01 Pulse Oximetry 96 09/15/19 19:01 Temperature 36.8 C 09/15/19 19:01 Temperature Source Skin 09/15/19 19:01 Pulse 106 H 09/15/19 19:01 Respiratory Rate 16 09/15/19 19:01 Respiratory Effort 09/15/19 19:05 Respiratory Depth Normal 09/15/19 19:05 Respiratory Pattern Normal 09/15/19 19:05 Blood Pressure 144/102 H 09/15/19 19:01 Blood Pressure Position Supine 09/15/19 19:01 Pulse Oximetry 96 09/15/19 19:01 Oxygen Delivery Method Room Air 09/15/19 19:01 Oxygen Flow Rate 0 09/15/19 19:01 Pain Level 9 09/15/19 19:05 Comment 09/15/19 19:01
[2019-09-15] MEDS: Ibuprofen 600 MG TAB PO (19:13)
--- NOTE | 2019-09-15 19:28 | DI.VRAD_ITS ---
PROCEDURE INFORMATION: Exam: XR Chest, 2 Views Exam date and time: 09/15/2019 7:19 PM Age: 49 years old Clinical indication: Other: Right sided chest pain S/P fall TECHNIQUE: Imaging protocol: XR of the chest Views: 2 views. COMPARISON: No relevant prior studies available. FINDINGS: Lungs: Low lung volumes. Pleural space: Unremarkable. No pleural effusion. No pneumothorax. Heart/Mediastinum: Unremarkable. No cardiomegaly. Bones/joints: Degenerative changes of the thoracic spine. There are no markers in the area of clinical pain. There is no obvious displaced rib fracture. If clinical concern about possible rib fracture recommend obtaining dedicated views with markers in the area of clinical pain. IMPRESSION: 1. No acute cardiopulmonary findings. 2. Additional findings as discussed above. Dictated and Authenticated by: Michaela Metzger MD. Ordering:ALLEN Solorzano MD
== END 2019-09-15 19:55 | disposition home or self-care (01) ==
LOC: ER 21:08
PROVIDERS: Emergency Provider Emergency Medicine; PCP Family Medicine
DX: S20.221A Contusion of right back wall of thorax, initial encounter (principal); W10.8XXA Fall (on) (from) other stairs and steps, initial encounter; I10 Essential (primary) hypertension
CPT/HCPCS: 99283; 71046

== ENCOUNTER 2024-06-17 10:48 | Emergency (ER) | payer OTHER, SELFPAY ==
[2024-06-17 10:52] VITALS: BP 164/110; PULSE 97; RESP 20; TEMP 37.4; O2SAT 95
--- NOTE | 2024-06-17 11:00 | DI.CT_ITS ---
Exam(s) CT ABDOMEN PELVIS W EXAM: CT ABDOMEN PELVIS W CLINICAL HISTORY: left lower abdominal pain. TECHNIQUE: Imaging Protocol: Axial computed tomography images with coronal and sagittal reformatted images were created and reviewed CONTRAST MATERIAL: Intravenous: Omnipaque 350 Contrast volume:100 ml Oral: no COMPARISON: CT ABD PELVIS WITH CONTRAST from 01/04/2010 FINDINGS: ABDOMEN and PELVIS: Lung Bases: No acute findings. Liver: Normal enlarged. Hepatic steatosis. No suspicious mass. Gallbladder and biliary tract: No radiodense calculus. No wall thickening or pericholecystic fluid. No biliary dilation. Pancreas: Normal density. No abnormal calcifications or inflammatory process. No evidence of mass. Spleen: Normal. Kidneys: Normal size, contour and axis. No radiodense stones. No obstructive uropathy. No suspicious masses seen. Retroaortic left renal vein. Adrenal glands: No masses seen. Vasculature: Abdominal aorta non-dilated. Soft tissues: Prior anterior abdominal hernia repair in the region of the umbilicus. No recurrence a samuel. Small amount of fat in the inguinal canals. Bladder: No gross wall thickening. No calculi.No focal mass. Bowel: Arm diverticulosis involving the descending and sigmoid colon. Severe inflammation around the proximal sigmoid consistent with diverticulitis. No abscess or perforation. Appendix is not seen. No obstruction. Bones: Unremarkable for age. Reproductive organs: Unremarkable. Lymph nodes: No pathologically enlarged lymph nodes. IMPRESSION:: Severe sigmoid diverticulitis. The findings were called to Dr. Patel of the emergency department. RADIATION DOSE DELIVERED: 913.87mGy.cm Total DLP DATA REPOSITORY: All CT scans at this facility are submitted to the National Radiology Data Registry (NRDR) Dose Index Registry (DIR) with the [employer] (A[employer]). RADIATION OPTIMIZATION: All CT scans at this facility use at least one of these dose optimization te chniques: automated exposure control; mA and/or kV adjustment per patient size (includes targeted exa ms where dose is matched to clinical indication); or iterative reconstruction.
--- NOTE | 2024-06-17 11:08 | ED.GENADUL_ITS ---
Discharge Plan Disposition Patient Disposition: Home Condition: Stable Discharge Details Clinical Impression: Diverticulitis large intestine w/o perforation or abscess w/o bleeding Primary Care Provider: Christofer Abernathy ED Provider: Rashad Patel [place] Meds and New Rx's Prescriptions: New metronidazole 500 mg tablet 500 mg PO Q8H Qty: 21 0RF ciprofloxacin HCl 500 mg tablet 500 mg PO BID Qty: 14 0RF Continued lisinopril 10 mg tablet 10 mg PO DAILY Qty: 90 0RF sildenafil 100 mg tablet 100 mg PO .COMPLEX PRN Patient Comments: TAKE ONE TABLET BY MOUTH EVERY DAY NEEDED FOR ERECTILE DYSFUNCTION MAXIMUM DAILY DOSE = ONE Rx Instructions: 100 mg orally as needed for ED PRN; Discharge Instructions Additional Instructions: Your CAT scan showed you have diverticulitis. Take the antibiotics as pres cribed. If not improving within a week follow-up with your primary care provider. If you feel more ill or have severe worsening pain or high fevers return to the emergency department for reevaluation. HPI General Mode of arrival: ambulatory . Date/Time Provider Initiated Documentation: 06/17/24 10:49 . Limitations to Documentation: no limitations . Information obtained by: patient . History of Present Illness 54 year old M presents to the emergency department with the chief complaint of abdominal pain, described as moderate, Quality is described as aching and sharp, and is localized to the abdomen. Patient reports no radiation. Patient started experiencing this day(s) (2) and it has been constant. No relieving factors improve symptom(s), No exacerbating factors reported . Patient notes no other symptoms.. Patient did receive the following treatments prior to arrival, none Related Data Home Medications ?Medication ?Instructions ?Recorded ?Confirmed ciprofloxacin HCl 500 mg tablet 500 mg PO BID #14 tabs 06/17/24 lisinopril 10 mg tablet 10 mg PO DAILY #90 tabs 06/17/24 06/17/24 metronidazole 500 mg tablet 500 mg PO Q8H #21 tabs 06/17/24 sildenafil 100 mg tablet 100 mg PO .COMPLEX PRN 06/17/24 06/17/24 Previous Rx's ?Medication ?Instructions ?Recorded ciprofloxacin HCl 500 mg tablet 500 mg PO BID #14 tabs 06/17/24 lisinopril 10 mg tablet 10 mg PO DAILY #90 tabs 06/17/24 metronidazole 500 mg tablet 500 mg PO Q8H #21 tabs 06/17/24 Allergies Allergy/AdvReac Type Severity Reaction Status Date / Time pollen extracts Allergy Hives Verified 06/17/24 10:51 General Stated Complaint: Abd Prob FERNANDO: 3 Review of Systems All systems reviewed & are unremarkable except as noted in HPI and below Constitutional Constitutional: Denies chills, Denies fever(s) and Denies weakness Cardiovascular Cardiovascular: Denies chest pain and Denies dyspnea Respiratory Respiratory: Denies cough and Denies dyspnea Gastrointestinal Gastrointestinal: Reports abdominal pain, Denies nausea and Denies vomiting Genitourinary Genitourinary: Denies dysuria Neurologic Neurologic: Denies weakness Exam Const General: no acute distress Orientation: alert HENMT Head: normal to inspection Ears: external ears normal General nose exam: external nose normal Mouth: moist mucous membranes Eyes General: appearance normal, both eyes and all related structures Neck Neck: normal visual inspection Resp Effort & Inspection: normal respiratory effort and able to speak in complete sentences Cardio Rate: regular rate GI Palpation: soft, not firm, no guarding and tender Skin General skin exam: no rashes or lesions noted Neuro General: patient alert and patient oriented x3 Extrem General: normal to inspection Psych Mental Status: mental status grossly normal Course Vital Signs Vital signs: Vital Signs Temperature 37.4 C 06/17/24 10:52 Pulse 97 H 06/17/24 10:52 Respiratory Rate 20 06/17/24 10:52 Blood Pressure 164/110 H 06/17/24 10:52 Pulse Oximetry 95 06/17/24 10:52 Temperature 37.4 C 06/17/24 10:52 Temperature Source Oral 06/17/24 10:52 Pulse 97 H 06/17/24 10:52 Respiratory Rate 20 06/17/24 10:52 Blood Pressure 164/110 H 06/17/24 10:52 Blood Pressure Position Sitting 06/17/24 10:52 Pulse Oximetry 95 06/17/24 10:52 Oxygen Delivery Method Room Air 06/17/24 10:52 Oxygen Flow Rate 0 06/17/24 10:52 Pain Level 6 06/17/24 11:02 Medical Decision Making 54-year-old male with a history of hypertension and has a history of diverticulitis and has had an appendectomy as well comes in with 2 to 3 days of left lower quadrant pain. He says he had some intermittent very mild discomfort in the area saw PCP and was told he likely has diverticulitis but has not treated with antibiotic anymore he denies any fevers, chills, vomiting, urinary symptoms. He is well-appearing on exam. He has tenderness in the left lower quadrant and has no tenderness elsewhere in the abdomen. Given location of pain we will obtain a CT to evaluate for diverticulitis and check a CMP and CBC and lipase. Labs show mild leukocytosis, CT shows sigmoid diverticulitis without abscess or perforation. Patient is stable and still has no severe pain. Discussed with him and will plan for outpatient management with antibiotics. He will follow-up with PCP if not proving return precautions given Differential Diagnosis Differential Diagnosis: diverticulitis, colitis Medical Records Medical records reviewed: Yes I reviewed the patient's medical records. Lab Data Lab results reviewed: Yes I reviewed the patient's lab results. Quality:SDOH Health Related Social Needs: No Data to Display PFSH All Active Problems (Updated 06/17/24 @ 13:03 by Rashad Patel MD) Diverticulitis large intestine w/o perforation or abscess w/o bleeding (Acute) Gout attack (Acute) Olecranon bursitis, right elbow (Acute) Medical History (Updated 06/17/24 @ 13:03 by Rashad Patel MD) Non morbid obesity due to excess calories Essential hypertension Diverticulitis large intestine w/o perforation or abscess w/o bleeding Surgical History [place] [facility] [place] Append[place] Social History Smoking/Tobacco Use Status: Current every day Tobacco Type: smokeless tobacco Smoking risk assessment performed?: Yes Alcohol Intake: former Drug use: Never Substance use type: does not use Housing: house Do you feel safe at home: Yes Do you feel safe in your relationship?: Yes
[2024-06-17 11:22] VITALS: PULSE 93; O2SAT 97
[2024-06-17 11:25] LABS: Abs Immature Grans 0.04 10^3/uL (0.0-0.06); Absolute Basophil Count 0.04 10^3/uL (0.0-0.2); Absolute Eosinophil Count 0.19 10^3/uL (0.0-0.7); Absolute Lymphocyte Count 2.88 10^3/uL (1.2-3.4); Absolute Monocyte Count 0.96 10^3/uL (0.1-0.8); Absolute Neutrophil Count 8.33 10^3/uL (1.2-6.7); Basophils % 0.3 %; Eosinophils % 1.5 %; HCT 44.6 % (40.0-50.0); HGB 15.6 g/dL (13.5-17.5); Immature Grans % 0.3 %; Lymphocytes % 23.2 %; MCH 30.8 pg (27.0-33.0); MCV 88 fL (80-95); MPV 8.6 fL (8.0-11.0); Monocytes % 7.7 %; Platelet Count 249 10^3/uL (130-400); RBC 5.07 10^6/uL (4.36-5.78); RDW 12.3 % (11.8-14.1); RDW-SD 39.6 fL; WBC 12.43 10^3/uL (4.4-10.8)
[2024-06-17 11:30] VITALS: PULSE 91; O2SAT 97
[2024-06-17 11:33] VITALS: BP 140/88; PULSE 87; O2SAT 97
[2024-06-17 11:48] LABS: ALT 31 U/L (16-63); AST 14 U/L (15-37); Albumin 3.3 g/dL (3.4-5.0); Alkaline Phosphatase 73 U/L (46-116); Anion Gap 10.8 mmol/L (3-11); BUN 17 mg/dL (7-18); Bilirubin, Total 0.5 mg/dL (0.2-1.0); CO2 27.2 mmol/L (21.0-32.0); Calcium 9.2 mg/dL (8.5-10.1); Chloride 100 mmol/L (98-107); Estimated GFR 88.33 (mL/min/1.73m2); Glucose 104 mg/dL (74-106); Lipase 36 U/L (<78); Potassium 4.3 mmol/L (3.5-5.1); Sodium 138 mmol/L (136-145); Total Protein 7.9 g/dL (6.4-8.2)
[2024-06-17 12:06] LABS: Bilirubin Small (Negative); Blood Negative (Negative); Clarity Clear (Clear); Glucose Negative (Negative); Ketones 15 mg/dL (Negative); Leukocyte Esterase Negative (Negative); Nitrite Negative (Negative); Specific Gravity 1.025 (1.005-1.025); Urobilinogen 0.2 mg/dL (Up to 0.2)
[2024-06-17] MEDS: Normal Saline - Diluent 50 ML VIAL IJ (12:11)
[2024-06-17] MEDS: Omnipaque 350 MG/ML 100 ML BTL IJ (12:12)
[2024-06-17 13:20] VITALS: BP 122/92; PULSE 93; RESP 16; TEMP 37.4; O2SAT 98
[2024-06-17] MEDS: metroNIDAZOLE 500 MG TAB PO (13:20)
[2024-06-17] MEDS: Ciprofloxacin 500 MG TAB PO (13:20)
[2024-06-17] MEDS: MORPHine IR 15 MG TAB, 4 TABS/BTL PO (13:20)
== END 2024-06-17 13:38 | disposition home or self-care (01) ==
PROVIDERS: Emergency Provider Emergency Medicine; PCP Family Medicine
DX: K57.30 Diverticulosis of large intestine without perforation or abscess without bleeding (principal); D72.829 Elevated white blood cell count, unspecified
CPT/HCPCS: 99285; 99283; 36415; 80053; 83690; 74177; 81003; 83735; 85025; J3490